=== PATIENT | female | born 1985 | race Caucasian/White ===

== ENCOUNTER 2017-10-27 06:40 | Emergency (ER) | payer MEDICAID ==
--- NOTE | 2017-10-27 07:05 | EDM.PDOC ---
ED HPI GENERAL MEDICAL PROBLEM - General Chief Complaint: Back Pain or Injury Stated Complaint: lumbar pain Time Seen by Provider: 10/27/17 07:00 Source of Information: Reports: Patient, Family (Mother), Old Records ([facility] chart/EMR) History Limitations: Reports: No Limitations - History of Present Illness INITIAL COMMENTS - FREE TEXT/NARRATIVE: The patient was brought to the emergency room via private automobile by her mother for evaluation of exacerbation of her chronic low back pain with severe bilateral low back pain and spasms, right greater than left, and additional secondary paresthesias and sciatica to her knees bilaterally since she woke up this morning. She has had exacerbation of her chronic low back pain for the last couple months and has been seen her chiropractor regularly. No history of recent fall or injury. Her chiropractor has taken x-rays of her back in the past by her history. The patient denies any chest pain/pressure, heart flutter, dizziness, orthostasis, orthopnea, diaphoresis, paresthesias, recent decreased exercise tolerance, or any other anginal-type symptoms. No recent history of abdominal pain, heartburn, nausea, diarrhea, melena, gross hematochezia, or any food intolerance, including fatty foods, etc.. She denies any gross hematuria, colic, or other UTI symptoms. The patient also denies any recent fever, cough, wheezing, dyspnea, etc.. Onset: Today, Sudden Onset Date: 10/27/17 Onset Time: 05:00 Duration: Constant, Getting Worse Location: Reports: Back, Lower Extremity, Left, Lower Extremity, Right, Radiates to (As above). Denies: Head, Face, Neck, Chest, Abdomen, Pelvis, Upper Extremity, Left, Upper Extremity, Right Quality: Reports: Same as Previous Episode, Sharp, Stabbing Severity: Severe Improves with: Reports: None Worsens with: Reports: Movement Context: Reports: Other (As above) Associated Symptoms: Denies: Confusion, Chest Pain, Cough, Diaphoresis, Fever/ Chills, Headaches, Loss of Appetite, Malaise, Nausea/Vomiting, Shortness of Breath, Syncope, Weakness Treatments INSURANCE INSTRUCTOR: Reports: NSAIDS (800 mg shortly prior to arrival), Other Medication(s) (Flexeril shortly prior to arrival) Lumbar Pain Score (Numeric/FACES): 10 - Related Data Allergies Allergy/AdvReac Type Severity Reaction Status Date / Time No Known Allergies Allergy Verified 10/27/17 06:45 Home Meds: Home Meds Cyclobenzaprine [Flexeril] 10 mg PO TID PRN 10/27/17 [History] Menthol [Biofreeze] 1 applic TP ASDIRECTED PRN 10/27/17 [History] Multivitamin [Multi-Vitamin Daily] 1 each PO DAILY 10/27/17 [History] Past Medical History HEENT History: Reports: Allergic Rhinitis, Impaired Vision, Other (See Below). Denies: Hard of Hearing, Retinal Detachment Other HEENT History: She wears glasses and soft contacts Cardiovascular History: Reports: None. Denies: Afib, Aneurysm, Arrhythmia, Blood Clots/VTE/DVT, Heart Murmur, High Cholesterol, Hypertension, Syncope Respiratory History: Denies: Asthma, COPD, Intubation, Previous, PE, Pneumothorax, Sleep Apnea Gastrointestinal History: Reports: Other (See Below). Denies: Celiac Disease, Cholelithiasis, Chronic Constipation, Chronic Diarrhea, Fecal Incontinence, Gastritis, GERD, Inflammatory Bowel Disease, Irritable Bowel Syndrome, Jaundice , PUD Other Gastrointestinal History: History of LFTs elevation is likely secondary to mononucleosis in July 2013. Mild hepatosplenomegaly Genitourinary History: Reports: Renal Calculus, STD, Other (See Below). Denies : Acute Renal Failure, Chronic Renal Insuffiency, Urinary Incontinence, UTI, Recurrent Other Genitourinary History: Suspected left-sided urolithiasis on 09/04/17. Chlamydia in 2013 [employer] History: Reports: None. Denies: Dysfunctional Uterine Bleeding, Endometriosis, Fibroids, Polycystic Ovaries, , Spontaneous , Therapeutic : 0 Para: 0 LMP (Approximate): 1 Month Musculoskeletal History: Reports: Arthritis, Back Pain, Chronic, Osteoarthritis , SLE, Other (See Below). Denies: Gout, RA Other Musculoskeletal History: Positive WALESKA on 08/17/13 with no apparent sequelae. Bilateral knee complaints secondary to borderline ligamental tears at age 7 Neurological History: Reports: Headaches, Chronic, Neuropathy, Peripheral. Denies: Cerebral Aneurysms, Concussion, CVA, Head Trauma Psychiatric History: Reports: Addiction, Anxiety, Depression, Other (See Below) . Denies: Abuse, Victim of, ADD, ADHD, Psych Hospitalization(s), PTSD, Suicide Attempt, Suicidal Ideation Other Psychiatric History: Illicit drug use as below Endocrine/Metabolic History: Reports: Obesity/BMI 30+. Denies: Diabetes, Type I , Diabetes, Type II, Diabetes Mellitus, Type 3c, Hypothyroidism, IDDM Hematologic History: Denies: Anemia, Blood Transfusion(s), Iron Deficiency Immunologic History: Reports: SLE, Other (See Below). Denies: AIDS, HIV Other Immunologic History: Possibly as above Oncologic (Cancer) History: Denies: Basal Cell Carcinoma, Cervix, Hodgkin's Lymphoma, Malignant Melanoma, Non-Hodgkin's Lymphoma, Squamous Cell Carcinoma Dermatologic History: Reports: None. Denies: Eczema, Psoriasis - Infectious Disease History Infectious Disease History: Reports: Chicken Pox, Mononucleosis (10/09/12), Other (See Below). Denies: C-Difficile, Measles, Meningitis, MRSA, Mumps, Rheumatic Fever, Rubella, Scarlet Fever, Shingles, TB, VRE Other Infectious Disease History: Chlamydia in 2013 as above - Past Surgical History Head Surgeries/Procedures: Reports: None HEENT Surgical History: Reports: Adenoidectomy, Oral Surgery, Other (See Below) . Denies: Eye Surgery, Laser Surgery, LASIK, Myringotomy w Tube(s), Naso-Sinus Surgery, Tonsillectomy Other HEENT Surgeries/Procedures: Adenoidectomy as a child.[place] teeth extraction 4 at about age 14 Cardiovascular Surgical History: Reports: None. Denies: Varicose Respiratory Surgical History: Reports: None. Denies: Thoracentesis GI Surgical History: Reports: None. Denies: Appendectomy, Cholecystectomy, Colonoscopy, EGD, Hernia, Abdominal, Hernia, Inguinal, Polypectomy Female Surgical History: Reports: None. Denies: Tubal Ligation Endocrine Surgical History: Reports: None. Denies: Thyroid Biopsy Neurological Surgical History: Reports: None. Denies: C-Spine, Discectomy, Intracranial, Laminectomy, Lumbar Spine, Spinal Fusion, Vertebroplasty Musculoskeletal Surgical History: Denies: Carpal Tunnel, Ganglion Cyst Oncologic Surgical History: Reports: None Dermatological Surgical History: Reports: None - Past Imaging History Past Imaging History: Reports: Ultrasound (Abdominal ultrasound on 08/09/13) Social & Family History - Tobacco Use Smoking Status *Q: Current Every Day Smoker Tobacco Use Within Last Twelve Months: Cigarettes Years of Tobacco use: 14 Packs/Tins Daily: 1 (Started smoking at age 17) Used Tobacco, but Quit: No Smoking Cessation Information Provided To Patient: Yes Second Hand Smoke Exposure: Yes 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 Denies: Coffee, Energy Drinks, Soda, Tea - Alcohol Use Alcohol Use History: Yes Days Per Week of Alcohol Use: 2 (No previous DWIs, problems with alcohol abuse, etc.) Number of Drinks Per Day: 6 Total Drinks Per Week: 12 Alcohol Use in Last Twelve Months: Yes Alcohol Use Frequency: Binges - Recreational Drug Use Recreational Drug Use: No Drug Use in Last 12 Months: No Recreational Drug Type: Reports: Amphetamines (Speed), Marijuana/Hashish, Methamphetamine. Denies: Cocaine, Heroin, Inhalants (Glues, Solvents, Aerosols) , LSD (Acid) Other Recreational Drug Type: No history of IV drug use. She has not used any illicit drugs since March 2017 with periodic use since age 15 - Living Situation & Occupation Living situation: Reports: Single, Alone Occupation: Employed ([employer]) ED ROS GENERAL - Review of Systems Review Of Systems: ROS reveals no pertinent complaints other than HPI. ED EXAM,LOWER BACK PAIN/INJURY - Physical Exam Exam: See Below Exam Limited By: No Limitations General Appearance: Alert, WD/WN, Anxious (Mild to moderate), Mild Distress ( Secondary to back pain) Head: Atraumatic, Normocephalic Neck: Normal Inspection, Supple, Non-Tender, Full Range of Motion. No: Lymphadenopathy (L), Lymphadenopathy (R), Thyromegaly Respiratory/Chest: No Respiratory Distress, Lungs Clear, Normal Breath Sounds, No Accessory Muscle Use, Chest Non-Tender. No: Pleural Rub, Retractions Cardiovascular: Normal Peripheral Pulses, Regular Rate, Rhythm, No Edema, No Gallop, No JVD, No Murmur, No Rub. No: Gallop/S3, Gallop/S4, Friction Rub GI/Abdominal: Normal Bowel Sounds, Soft, Non-Tender, No Organomegaly, No Distention, No Abnormal Bruit, No Mass, Pelvis Stable, Other (obese). No: Guarding (Female) Exam: Deferred Rectal (Female) Exam: Deferred Back Exam: Decreased Range of Motion (Secondary to spasms and pain), Muscle Spasm (Moderate bilateral right greater than left in the mid lumbar region), Paraspinal Tenderness (Moderate palpation pain over mid lower back pain). No: CVA Tenderness (L), CVA Tenderness (R), Vertebral Tenderness Extremities: Normal Range of Motion, Non-Tender, Normal Capillary Refill, Pedal Edema (Mild bilateral lymphedema of the lower extremities). No: Edward's Sign Neurological: Alert, Normal Mood/Affect, Normal Dorsiflexion, CN II-XII Intact, Normal Plantar Flexion, Normal Gait, Normal Reflexes, No Motor/Sensory Deficits , Oriented x 3 Psychiatric: Anxious (Mild to moderate), Depressed Mood (Borderline) Skin Exam: Warm, Dry, Intact, Normal Color, No Rash, Stud(s) (Multiple), Tattoo( s) (Multiple). No: Diaphoretic, Wound/Incision Lymphatic: No Adenopathy Course - Vital Signs Last Recorded V/S: Last Vital Signs Temp 36.6 C 10/27/17 06:45 Pulse 90 10/27/17 06:58 Resp 20 10/27/17 08:07 BP 146/82 H 10/27/17 08:07 Pulse Ox 100 10/27/17 08:07 Vital Signs - 24 hr 10/27/17 10/27/17 10/27/17 06:45 06:58 07:13 Temperature [ 36.6 C Oral] Pulse, 100 90 Peripheral [ Left Brachial] Respiratory 22 H Rate Blood Pressure 147/11 H [Left Lower Arm ] Blood Pressure 163/114 H 161/90 H 171/102 H [Right Lower Arm] O2 Sat by Pulse 99 Oximetry 10/27/17 08:07 Temperature [ Oral] Pulse, Peripheral [ Left Brachial] Respiratory 20 Rate Blood Pressure [Left Lower Arm ] Blood Pressure 146/82 H [Right Lower Arm] O2 Sat by Pulse 100 Oximetry - Orders/Labs/Meds Orders: Active Orders 24 hr Category Date Time Status Peripheral IV Care [RC] . DIRECTED Care 10/27/17 07:35 Active Obtain Past Medical Record [OM.PC] Routine Oth 10/27/17 07:05 Active Peripheral IV Insertion Adult [OM.PC] Routine Oth 10/27/17 07:35 Ordered Labs: None Meds: Medications Discontinued Medications Generic Name Dose Route Start Last Admin Trade Name Freq PRN Reason Stop Dose Admin Diazepam 10 mg 10/27/17 07:05 10/27/17 07:10 Valium IM 10/27/17 07:06 10 mg ONETIME ONE Administration Fentanyl 50 mcg 10/27/17 07:37 10/27/17 07:46 Sublimaze IVPUSH 10/27/17 07:38 50 mcg ONETIME ONE Administration Lorazepam 1 mg 10/27/17 07:35 10/27/17 07:47 Ativan IVPUSH 10/27/17 07:36 1 mg ONETIME ONE Administration Methylprednisolone Acetate 80 mg 10/27/17 07:06 10/27/17 07:09 Depo-Medrol IM 10/27/17 07:07 80 mg ONETIME ONE Administration Ondansetron HCl 4 mg 10/27/17 07:37 10/27/17 07:46 Zofran IVPUSH 10/27/17 07:38 4 mg ONETIME ONE Administration Sodium Chloride 10 ml 10/27/17 07:35 10/27/17 07:58 Saline Flush FLUSH 10 ml ASDIRECTED PRN Administration Keep Vein Open - Radiology Interpretation Free Text/Narrative:: None Departure - Departure Time of Disposition: 08:17 Disposition: Home, Self-Care 01 Condition: Good Clinical Impression: Obesity (BMI 30-39.9), Tobacco abuse counseling, Mixed anxiety depressive disorder Low back pain Qualifiers: Chronicity: acute Back pain laterality: bilateral Sciatica presence: with sciatica Sciatica laterality: bilateral sciatica Qualified Code(s): M54.42 - Lumbago with sciatica, left side Osteoarthritis Qualifiers: Osteoarthritis location: multiple joints Osteoarthritis type: primary Qualified Code(s): M15.0 - Primary generalized (osteo)arthritis - Discharge Information Instructions: Fat and Cholesterol Restricted Diet, Heart-Healthy Eating Plan, [id number], Chronic Back Pain Referrals: Padma Simons PA-C [Primary Care Provider] - Forms: ED Department Discharge Additional Instructions: 1. Follow up with your regular provider in 10-14 days as needed, if symptoms persist. 2. Tylenol 650 mg by mouth every 4 hours and/or OTC ibuprofen 2-3 tabs by mouth every 6 hours with food as directed./needed. 3. BenGay or equivalent, heating pad, and/or ice packs as directed. 4. Activity as tolerated 5. Weight loss in moderation as discussed 6. Stop all tobacco use JOHN as directed/per provided information and consider contacting [employer]uit [employer], etc.. 7. Sedation precautions with no driving, etc. for 18 hours because of emergency room medications. 8. You may continue to see your chiropractor. - Problem List & Annotations (1) Low back pain SNOMED Code(s): 333984260 Code(s): M54.5 - LOW BACK PAIN Status: Acute Priority: High Onset Date : 10/27/17 Annotation/Comment:: Severe exacerbation of her chronic low back pain as above. Overall excellent results with aggressive treatment in the emergency room. Sedation precautions given. Activity restrictions discussed. She does not need a work excuse. Continue care associate. Relationship of her chronic low back pain to her weight was extensively discussed with dietary information provided. Blood pressures were somewhat elevated secondary to her pain with improvement prior to discharge and no known previous history of hypertension. Qualifiers: Chronicity: acute Back pain laterality: bilateral Sciatica presence: with sciatica Sciatica laterality: bilateral sciatica Qualified Code(s): M54.42 - Lumbago with sciatica, left side; M54.41 - Lumbago with sciatica, right side; M54.41 - Lumbago with sciatica, right side (2) Osteoarthritis SNOMED Code(s): 271795396 Code(s): M19.90 - UNSPECIFIED OSTEOARTHRITIS, UNSPECIFIED SITE Status: Chronic Priority: Medium Annotation/Comment:: Additional previous history of positive WALESKA without true SLE type symptoms. Otherwise stable by history Qualifiers: Osteoarthritis location: multiple joints Osteoarthritis type: primary Qualified Code(s): M15.0 - Primary generalized (osteo)arthritis (3) Obesity (BMI 30-39.9) SNOMED Code(s): 077335540 Code(s): E66.9 - OBESITY, UNSPECIFIED Status: Chronic Priority: High Annotation/Comment:: As above (4) Tobacco abuse counseling SNOMED Code(s): 462351913, 792596439 Code(s): Z71.6 - TOBACCO ABUSE COUNSELING Status: Chronic Priority: Medium Annotation/Comment:: Tobacco Cessation strongly encouraged with information provided. (5) Mixed anxiety depressive disorder SNOMED Code(s): 859120608 Code(s): F41.8 - OTHER SPECIFIED ANXIETY DISORDERS Status: Chronic Priority: Medium Annotation/Comment:: Improved at discharge. Continue to observe closely by her regular provider - Problem List Review Problem List Initiated/Reviewed/Updated: Yes - My Orders Last 24 Hours: My Active Orders 10/27/17 07:05 Obtain Past Medical Record [OM.PC] Routine 10/27/17 07:35 Peripheral IV Care [RC] . DIRECTED Peripheral IV Insertion Adult [OM.PC] Routine - Assessment/Plan Last 24 Hours: My Active Orders 10/27/17 07:05 Obtain Past Medical Record [OM.PC] Routine 10/27/17 07:35 Peripheral IV Care [RC] . DIRECTED Peripheral IV Insertion Adult [OM.PC] Routine Assessment:: As above Plan: As above. Extensive precautions were given to the patient and her mother, who are in agreement with the treatment plan. See Patient Instructions for further treatment and plan.
[2017-10-27] MEDS ORDERED: methylPREDNISolone Acetate 80 MG/ML SDV IM ONE (07:06)
[2017-10-27] MEDS ORDERED: LORazepam 2 MG/ML MDV IVPUSH ONE (07:35)
[2017-10-27] MEDS ORDERED: Sodium Chloride 0.9% 10 ML Syringe FLUSH PRN (07:35)
[2017-10-27] MEDS ORDERED: fentaNYL 100 MCG/2 ML SDV IVPUSH ONE (07:37)
[2017-10-27] MEDS ORDERED: Ondansetron 4 MG/2 ML SDV IVPUSH ONE (07:37)
== END 2017-10-27 08:16 | disposition home or self-care (01) ==
LOC: LL.ED 06:40
DX: M54.42 Lumbago with sciatica, left side (principal); M15.0 Primary generalized (osteo)arthritis; F41.8 Other specified anxiety disorders; E66.9 Obesity, unspecified; F17.210 Nicotine dependence, cigarettes, uncomplicated; Z68.39 Body mass index [BMI] 39.0-39.9, adult; Z71.6 Tobacco abuse counseling
CPT/HCPCS: 96372; 96374; 96375; 99284; J1040; J2060; J2405; J3010; J3360; J7050